=== PATIENT | male | born 1950 | race Hispanic/Latino ===

== ENCOUNTER → 2024-09-22 | Outpatient (CLI) | payer OTHER ==
--- NOTE | 2024-09-22 19:31 | HMCSR ---
APPROVED REPORT TEST INDICATIONS CAD The imaging protocol used to acquire images was Rest Tc-99m / TREADMILLstress Tc-99m 1 day Consent: The procedure was explained and understood by the patient. Informerd consent was witnessed Amanda Bernal Jr (N)(ARRT) First, low dose rest was performed then high dose stress. RESTING DATA: The resting ekg shows: NSR Rest SPECT myocardial perfusion imaging was performed in supine position minutes following the intra venous injection of 12 mCi of Tc-99 Sestamibi. EXERCISE STRESS: At peak stress, the patient was injected intravenously with 26.9mCi of Tc-99 Sestamibi. Time of stress injection: 1344 Date: 09/22/2024 Heart Rate at time of stress injection: 130 bpm. Patient continued to exercise for 1 minute(s). The images were gated to evaluate regional wall motion and calculate left ventricular ejection fracti on. STRESS DETAILS Reason for Termination: Reached target heart rate Stress Symptoms: Fatigue Max HR Achieved: 130 bpm % of APMHR Achieved: 87 Max Blood Pressure: 208/72 mmHg Exercise duration: 4.5 min Highest Stage Achieved: Stage 2: 2.5 mph at 12% grade. Stress ECG: Tachycardia, PVC's ST Change: Yes. Maximum ST Depression: 1.5 mm Angina Score during exercise: None Angela Treadmill Score: 4.[address] Change: No Study quality was good. Lung uptake was Normal. Artifact: motion artifact LEFT VENTRICLE Size: The left ventricular size is normal. Systolic Function:The left ventricular systolic function is normal. Wall Motion: No regional wall motion abnormalities noted. The left ventricular ejection fraction was calculated to be 69%.TID = 1.17. LV PERFUSION No reversible perfusion defect. RV Size/Shape Normal RV Conclusion The left ventricular ejection fraction was calculated to be 69%.TID = 1.17. No reversible perfusion defect. ST shift occurred in last minute of stress and promptly recovered after cessation of exercise. Low risk
== END | disposition home or self-care (01) ==
LOC: RAH 08:47
PROVIDERS: ATTEND Internal Medicine Cardiovascular Disease
DX: R00.0 Tachycardia, unspecified (principal); I25.10 Atherosclerotic heart disease of native coronary artery without angina pectoris; I49.3 Ventricular premature depolarization
CPT/HCPCS: 78452; 93017; A9500 ×2